=== PATIENT | female | born 1985 | race African-American/Black ===

== ENCOUNTER 2017-01-29 08:13 | Emergency (ER) | payer BC, OTHER ==
[2017-01-29 10:02] VITALS: BP 103/85
--- NOTE | 2017-01-29 10:02 | UC ---
Respiratory Complaint HPI - HPI Summary HPI Summary: [address], CONGESTION, MILD COUGH, CHILLS AND BODY ACHES. EXPOSED TO STREP. VOICE IS HOARSE. - History of Current Complaint Chief Complaint: UCGeneralIllness Stated Complaint: SORE THROAT CONGESTION Time Seen by Provider: 01/29/17 09:44 Hx Obtained From: Patient Hx Last Menstrual Period: 01/15/17 Onset/Duration: Gradual Onset, Lasting Days Timing: Constant Severity Initially: Moderate Severity Currently: Moderate Pain Intensity: 4 Pain Scale Used: 0-10 Numeric Character: Cough: Nonproductive Aggravating Factors: Nothing Alleviating Factors: Nothing Associated Signs And Symptoms: Positive: Chills, URI, Nasal Congestion, Hoarseness. Negative: Dyspnea, Wheezing, Hemoptysis, Edema - Allergies/Home Medications Allergies/Adverse Reactions: Allergies Allergy/AdvReac Type Severity Reaction Status Date / Time No Known Allergies Allergy Verified 01/29/17 08:22 Home Medications: Home Medications Amitriptyline TAB* [Elavil TAB*] 30 mg PO BEDTIME 01/29/17 [History Confirmed ] Eletriptan Hydrobromide [Relpax] 1 tab PO SEE INSTRUCTIONS PRN 01/29/17 [ History Confirmed 01/29/17] Lyrica 150 mg PO TID 01/29/17 [History Confirmed 01/29/17] Topiramate [Trokendi Xr] 1 cap PO BID 01/29/17 [History Confirmed 01/29/17] PMH/Surg Hx/FS Hx/Imm Hx Neurological History: Migraine Other Neurological History: TRIGEMINAL NEURALGIA - Surgical History Surgical History: Yes Surgery Procedure, Year, and Place: microvascular decompression x2 -gamma knife , balloon procedure - Family History Known Family History: Negative: Hypertension, Diabetes - Social History Alcohol Use: Rare Substance Use Type: None Smoking Status (MU): Never Smoked Tobacco Review of Systems Constitutional: Chills ENT: Sore Throat, Nasal Discharge Respiratory: Cough Cardiovascular: Negative Gastrointestinal: Negative Musculoskeletal: Myalgia All Other Systems Reviewed And Are Negative: Yes Physical Exam Triage Information Reviewed: Yes Appearance: No Pain Distress, Well-Nourished, Ill-Appearing - MILD Vital Signs: Initial Vital Signs Temp 98.5 F 01/29/17 08:16 Pulse 100 01/29/17 08:16 Resp 18 01/29/17 08:16 BP 118/74 10/06/17 08:16 Pulse Ox 100 01/29/17 08:16 Eyes: Positive: Conjunctiva Clear ENT: Positive: Hearing grossly normal, Pharynx normal, TMs normal, Muffled/ hoarse voice Neck: Positive: Supple, Nontender, No Lymphadenopathy Respiratory Exam: Normal Cardiovascular Exam: Normal Abdomen Description: Positive: Soft Musculoskeletal: Positive: No Edema Neurological: Positive: Alert Psychological: Positive: Age Appropriate Behavior Skin: Negative: rashes UC Diagnostic Evaluation - Laboratory O2 Sat by Pulse Oximetry: 100 Diagnostic Studies Comment: RAPID STREP NEGATIVE Respiratory Course/Dx - Differential Dx/Diagnosis Provider Diagnoses: ACUTE URI Discharge - Discharge Plan Condition: Stable Disposition: HOME Patient Education Materials: Upper Respiratory Infection (ED) Referrals: No Primary Care Phys,NOPCP [Primary Care Provider] - Additional Instructions: STREP TEST NEGATIVE TODAY. YOUR SYMPTOMS ARE LIKELY VIRALLY MEDIATED AND SHOULD RESOLVE ON THEIR OWN WITH TIME. REST, HYDRATE, OTC MEDS NEEDED. SEEK FOLLOW- UP IF YOU ARE NOT IMPROVING OVER THE NEXT 1-2 WEEKS. FOLLOW-UP HERE OR WITH YOUR PCP BACK HOME IF YOU ARE NOT IMPROVING EXPECTED.
== END 2017-01-29 10:15 | disposition home or self-care (01) ==
LOC: UCEAST 08:13
DX: J06.9 Acute upper respiratory infection, unspecified (principal)
CPT/HCPCS: 87651; 99201; G0463